=== PATIENT | male | born 1955 | race Two or more races ===

== ENCOUNTER 2018-10-23 20:09 | Inpatient (IN) | payer MEDICARE, OTHER ==
[~2018-10-23] VITALS: Ht 182.9 cm; Wt 81.6 kg
[2018-10-23] MEDS ORDERED: OLANZAPINE 10 MG VIAL IM ONE ×2 (20:39→21:00)
[2018-10-23 20:43] LABS: APPEARANCE,URINE Clear (CLEAR); BILIRUBIN,URINE Negative (NEGATIVE); BLOOD, URINE Negative Ery/uL (NEGATIVE); COLOR,URINE Yellow (YELLOW); KETONES,URINE Negative (NEGATIVE); LEUKOCYTE ESTERASE ,URINE Negative (NEGATIVE); NITRITE, URINE Positive (NEGATIVE); PROTEIN,URINE Negative (NEGATIVE); UGLUCOSE Negative (NEGATIVE); UROBILINOGEN,URINE 0.2 EU/dL (0.2)
[2018-10-23 20:50] LABS: BASOPHILS # (AUTO) 0.1 /CMM (0.0-0.2); BASOPHILS % (AUTO) 0.8 % (0.0-2.0); EOSINOPHILS % (AUTO) 1.8 % (0.0-6.0); HEMATOCRIT 43 % (39-51); HEMOGLOBIN 14.7 g/dL (13.5-17.5); LYMPHOCYTES % (AUTO) 30.5 % (20.0-44.0); MEAN CORPUSCULAR HGB CONC 34 g/dl (31.0-36.0); MEAN CORPUSCULAR VOLUME 97 fL (80-96); MONOCYTES # (AUTO) 0.7 /CMM (0.1-1.30); MONOCYTES % (AUTO) 7.1 % (2.0-12.0); NEUTROPHILS # (AUTO) 5.9 /CMM (1.8-8.9); NEUTROPHILS % (AUTO) 59.8 % (43.0-81.0); PLATELET COUNT (AUTO) 218 /CMM (150-450); RED BLOOD CELL COUNT(AUTO) 4.42 MIL/uL (4.5-6.0); WHITE BLOOD COUNT (AUTO) 9.9 K/uL (4.3-11.0)
[2018-10-23 20:58] LABS: CALCIUM, SERUM 8.7 mg/dL (8.5-10.1); CARBON DIOXIDE 25 mmol/L (21-32); CHLORIDE 105 mmol/L (98-107); CREATININE 0.7 mg/dL (0.6-1.3); GLUCOSE 85 mg/dL (74-106); POTASSIUM 3.9 mmol/L (3.5-5.1); SODIUM SERUM 143 mmol/L (136-145); UREA NITROGEN, BLOOD 9 mg/dL (7-18)
[2018-10-23 21:01] LABS: SQUAMOUS EPITHELIAL CELL,UR Rare /HPF (None Seen)
[2018-10-23 21:02] LABS: BACTERIA,URINE Many /HPF (None Seen); RBC,URINE 0-2 /HPF (0-2); WBC,URINE 0-2 /HPF (0-3)
[2018-10-23 21:04] LABS: ALANINE AMINOTRANSFERASE 25 U/L (12-78); ALBUMIN 3.9 g/dL (3.4-5.0); ALCOHOL, BLOOD 209 mg/dL (0-0); ALKALINE PHOSPHATASE 70 U/L (46-116); ASPARTATE AMINOTRANSFERASE 25 U/L (15-37); BILIRUBIN,DIRECT 0.1 mg/dL (0.0-0.2); BILIRUBIN,TOTAL 0.3 mg/dL (0.2-1.0); SALICYLATE 3.6 mg/dL (2.8-20.0); TOTAL PROTEIN, SERUM 7.9 g/dL (6.4-8.2)
[2018-10-23 21:05] LABS: ACETAMINOPHEN < 2 ug/ml (10-30)
[2018-10-23] MEDS ORDERED: MAG HYDROX/AL HYDROX/SIMETH 30 ML UDC PO PRN (23:00)
[2018-10-23] MEDS ORDERED: ATOR40TA PO (23:37)
[2018-10-23] MEDS ORDERED: PHEN100C4 PO (23:37)
[2018-10-23] MEDS ORDERED: LISI10TA5 PO (23:37)
[2018-10-23] MEDS ORDERED: CLOP75TA15 PO (23:37)
[2018-10-23] MEDS ORDERED: METH750T3 PO (23:37)
[2018-10-23] MEDS ORDERED: TRAZ-182 PO (23:37)
[2018-10-23] MEDS ORDERED: QUET100T PO (23:37)
[2018-10-23] MEDS ORDERED: GABA-534 PO (23:37)
[2018-10-23] MEDS ORDERED: FLUT1DIS5 INH (23:37)
[2018-10-23] MEDS ORDERED: OMEP40CA37 PO (23:37)
[2018-10-23] MEDS ORDERED: DIPH50CA4 PO (23:48)
[2018-10-23] MEDS ORDERED: TRAM50TA2 PO (23:48)
[2018-10-23] MEDS ORDERED: HYDR-4384 PO (23:48)
[2018-10-23] MEDS ORDERED: TIOT18CA3 IH (23:48)
[2018-10-23] MEDS ORDERED: CLON0.1T PO (23:48)
[2018-10-23] MEDS ORDERED: ALBU18HF2 INH (23:48)
[2018-10-23 23:51] VITALS: BP 134/65
[2018-10-24 08:00] VITALS: BP 119/63
[2018-10-24 08:24] LABS: CREATININE 0.9 mg/dL (0.6-1.3)
[2018-10-24] MEDS: ACETAMINOPHEN 325 MG TABLET PO PRN (09:12)
[2018-10-24] MEDS: NICOTINE PATCH (21MG) 21 MG PATCH.TD24 TD SCH (09:13)
[2018-10-24] MEDS ORDERED: METHOCARBAMOL (750MG) 750 MG TABLET PO PRN (11:00)
[2018-10-24] MEDS ORDERED: diphenhydrAMINE HCL 50 MG CAPSULE PO PRN (11:00)
[2018-10-24] MEDS ORDERED: CLONIDINE HCL 0.1 MG TABLET PO PRN (11:00)
[2018-10-24] MEDS: GABAPENTIN 300 MG CAPSULE PO SCH ×2 (12:46→16:39)
[2018-10-24] MEDS: HYDROCODONE/APAP 5/325MG 1 EACH TABLET PO PRN (12:48)
[2018-10-24] MEDS: IPRATROPIUM NEB FS 0.5 MG/2.5 ML AMPUL.NEB NEB SCH ×2 (13:15→20:41)
[2018-10-24] MEDS: ALBUTEROL FS 2.5 MG/3 ML VIAL.NEB NEB PRN ×2 (13:15→20:41)
[2018-10-24 16:04] VITALS: BP 148/73
[2018-10-24] MEDS: TRAMADOL HCL 50 MG TABLET PO PRN (18:10)
[2018-10-24 19:56] VITALS: BP 155/84
[2018-10-24] MEDS: TRAZODONE 50 MG TABLET PO SCH (21:22)
[2018-10-24] MEDS: PHENYTOIN EXTENDED RELEASE 100 MG CAPSULE PO SCH (21:22)
[2018-10-24] MEDS: QUETIAPINE FUMARATE 100 MG TABLET PO SCH (21:26)
[2018-10-24] MEDS ORDERED: TRAZODONE 50 MG TABLET PO SCH (22:00)
[2018-10-24] MEDS: TEMAZEPAM 7.5 MG CAPSULE PO PRN (22:17)
[2018-10-25] MEDS: IPRATROPIUM NEB FS 0.5 MG/2.5 ML AMPUL.NEB NEB SCH ×4 (00:58→19:54)
[2018-10-25] MEDS: ALBUTEROL FS 2.5 MG/3 ML VIAL.NEB NEB PRN ×2 (00:58→13:26)
[2018-10-25 08:00] VITALS: BP 134/71
[2018-10-25] MEDS: HYDROCODONE/APAP 5/325MG 1 EACH TABLET PO PRN ×2 (09:03→15:20)
[2018-10-25] MEDS: CLOPIDOGREL BISULFATE 75 MG TABLET PO SCH (09:03)
[2018-10-25] MEDS: ATORVASTATIN 40 MG TABLET PO SCH (09:03)
[2018-10-25] MEDS: QUETIAPINE FUMARATE 25 MG TABLET PO SCH (09:04)
[2018-10-25] MEDS: NICOTINE PATCH (21MG) 21 MG PATCH.TD24 TD SCH (09:04)
[2018-10-25] MEDS: FLUTICASONE/VILANTEROL 1 EACH BLST.W.DEV IH SCH (09:06)
[2018-10-25] MEDS: GABAPENTIN 300 MG CAPSULE PO SCH ×3 (09:08→16:30)
[2018-10-25] MEDS: LISINOPRIL (10MG) 10 MG TABLET PO SCH (09:09)
[2018-10-25] MEDS: PANTOPRAZOLE 40 MG TABLET.DR PO SCH (09:10)
[2018-10-25] MEDS: LORAZEPAM 0.5 MG TABLET PO PRN ×2 (10:01→16:30)
[2018-10-25] MEDS: diphenhydrAMINE HCL 25 MG CAPSULE PO PRN (15:22)
[2018-10-25 16:00] VITALS: BP 142/69
[2018-10-25 20:00] VITALS: BP 136/66
[2018-10-25] MEDS: PHENYTOIN EXTENDED RELEASE 100 MG CAPSULE PO SCH (21:03)
[2018-10-25] MEDS: MUPIROCIN OINT 2% 22 GM TUBE SCH (21:03)
[2018-10-25] MEDS: QUETIAPINE FUMARATE 100 MG TABLET PO SCH (21:03)
[2018-10-25] MEDS: TRAZODONE 50 MG TABLET PO SCH (21:10)
[2018-10-25] MEDS: TEMAZEPAM 7.5 MG CAPSULE PO PRN (22:06)
[2018-10-26] MEDS: IPRATROPIUM NEB FS 0.5 MG/2.5 ML AMPUL.NEB NEB SCH ×4 (01:09→21:10)
[2018-10-26 08:00] VITALS: BP 134/82
[2018-10-26] MEDS: HYDROCODONE/APAP 5/325MG 1 EACH TABLET PO PRN ×3 (08:35→22:08)
[2018-10-26] MEDS: NICOTINE PATCH (21MG) 21 MG PATCH.TD24 TD SCH (08:35)
[2018-10-26] MEDS: QUETIAPINE FUMARATE 25 MG TABLET PO SCH (08:36)
[2018-10-26] MEDS: CLOPIDOGREL BISULFATE 75 MG TABLET PO SCH (08:36)
[2018-10-26] MEDS: PANTOPRAZOLE 40 MG TABLET.DR PO SCH (08:36)
[2018-10-26] MEDS: GABAPENTIN 300 MG CAPSULE PO SCH ×3 (08:36→16:11)
[2018-10-26] MEDS: ATORVASTATIN 40 MG TABLET PO SCH (08:36)
[2018-10-26] MEDS: FLUTICASONE/VILANTEROL 1 EACH BLST.W.DEV IH SCH (08:37)
[2018-10-26] MEDS: LISINOPRIL (10MG) 10 MG TABLET PO SCH (08:37)
[2018-10-26] MEDS: MUPIROCIN OINT 2% 22 GM TUBE SCH ×2 (08:38→22:10)
[2018-10-26] MEDS: MAGNESIUM HYDROXIDE 30 ML UDC PO PRN (08:53)
[2018-10-26] MEDS: LORAZEPAM 0.5 MG TABLET PO PRN ×2 (09:51→19:49)
[2018-10-26] MEDS: diphenhydrAMINE HCL 25 MG CAPSULE PO PRN (11:12)
[2018-10-26] MEDS: TRAMADOL HCL 50 MG TABLET PO PRN (14:00)
[2018-10-26 16:00] VITALS: BP 159/72
[2018-10-26] MEDS: ACETAMINOPHEN 325 MG TABLET PO PRN (19:56)
[2018-10-26 20:00] VITALS: BP 140/97
[2018-10-26] MEDS: ALBUTEROL FS 2.5 MG/3 ML VIAL.NEB NEB PRN (21:12)
[2018-10-26] MEDS: TEMAZEPAM 7.5 MG CAPSULE PO PRN (22:08)
[2018-10-26] MEDS: QUETIAPINE FUMARATE 100 MG TABLET PO SCH (22:08)
[2018-10-26] MEDS: PHENYTOIN EXTENDED RELEASE 100 MG CAPSULE PO SCH (22:08)
[2018-10-26] MEDS: TRAZODONE 50 MG TABLET PO SCH (22:08)
[2018-10-27] MEDS: diphenhydrAMINE HCL 25 MG CAPSULE PO PRN ×2 (00:28→08:49)
[2018-10-27] MEDS: IPRATROPIUM NEB FS 0.5 MG/2.5 ML AMPUL.NEB NEB SCH ×4 (01:30→20:30)
[2018-10-27 08:00] VITALS: BP 120/69
[2018-10-27] MEDS: ALBUTEROL FS 2.5 MG/3 ML VIAL.NEB NEB PRN ×3 (08:17→13:38)
[2018-10-27] MEDS: QUETIAPINE FUMARATE 25 MG TABLET PO SCH (08:38)
[2018-10-27] MEDS: NICOTINE PATCH (21MG) 21 MG PATCH.TD24 TD SCH (08:38)
[2018-10-27] MEDS: HYDROCODONE/APAP 5/325MG 1 EACH TABLET PO PRN ×3 (08:38→22:37)
[2018-10-27] MEDS: GABAPENTIN 300 MG CAPSULE PO SCH ×3 (08:39→16:58)
[2018-10-27] MEDS: ATORVASTATIN 40 MG TABLET PO SCH (08:39)
[2018-10-27] MEDS: PANTOPRAZOLE 40 MG TABLET.DR PO SCH (08:39)
[2018-10-27] MEDS: FLUTICASONE/VILANTEROL 1 EACH BLST.W.DEV IH SCH (08:39)
[2018-10-27] MEDS: MUPIROCIN OINT 2% 22 GM TUBE SCH ×2 (08:39→21:25)
[2018-10-27] MEDS: LISINOPRIL (10MG) 10 MG TABLET PO SCH (08:39)
[2018-10-27] MEDS: CLOPIDOGREL BISULFATE 75 MG TABLET PO SCH (08:49)
[2018-10-27] MEDS: ACETAMINOPHEN 325 MG TABLET PO PRN ×2 (11:42→18:59)
[2018-10-27] MEDS: LORAZEPAM 0.5 MG TABLET PO PRN ×2 (11:42→21:25)
[2018-10-27 16:00] VITALS: BP 122/62
[2018-10-27 20:00] VITALS: BP 139/68
[2018-10-27] MEDS: PHENYTOIN EXTENDED RELEASE 100 MG CAPSULE PO SCH (22:37)
[2018-10-27] MEDS: TRAZODONE 50 MG TABLET PO SCH (22:37)
[2018-10-27] MEDS: QUETIAPINE FUMARATE 100 MG TABLET PO SCH (22:37)
[2018-10-28] MEDS: IPRATROPIUM NEB FS 0.5 MG/2.5 ML AMPUL.NEB NEB SCH ×4 (01:10→20:17)
[2018-10-28 08:22] VITALS: BP 123/68
[2018-10-28] MEDS: ALBUTEROL FS 2.5 MG/3 ML VIAL.NEB NEB PRN ×3 (08:28→08:37)
[2018-10-28] MEDS: CLOPIDOGREL BISULFATE 75 MG TABLET PO SCH (08:43)
[2018-10-28] MEDS: PANTOPRAZOLE 40 MG TABLET.DR PO SCH (08:43)
[2018-10-28] MEDS: GABAPENTIN 300 MG CAPSULE PO SCH ×3 (08:43→16:26)
[2018-10-28] MEDS: QUETIAPINE FUMARATE 25 MG TABLET PO SCH (08:43)
[2018-10-28] MEDS: NICOTINE PATCH (21MG) 21 MG PATCH.TD24 TD SCH (08:43)
[2018-10-28] MEDS: LISINOPRIL (10MG) 10 MG TABLET PO SCH (08:43)
[2018-10-28] MEDS: ATORVASTATIN 40 MG TABLET PO SCH (08:43)
[2018-10-28] MEDS: FLUTICASONE/VILANTEROL 1 EACH BLST.W.DEV IH SCH (08:44)
[2018-10-28] MEDS: MUPIROCIN OINT 2% 22 GM TUBE SCH ×2 (08:45→21:31)
[2018-10-28] MEDS: TRAMADOL HCL 50 MG TABLET PO PRN (08:54)
[2018-10-28] MEDS: HYDROCODONE/APAP 5/325MG 1 EACH TABLET PO PRN ×2 (11:23→18:27)
[2018-10-28] MEDS: LORAZEPAM 0.5 MG TABLET PO PRN ×2 (12:31→21:30)
[2018-10-28] MEDS: ACETAMINOPHEN 325 MG TABLET PO PRN (15:05)
[2018-10-28 16:00] VITALS: BP 138/71
[2018-10-28 20:00] VITALS: BP 133/83
[2018-10-28] MEDS: TRAZODONE 50 MG TABLET PO SCH (21:30)
[2018-10-28] MEDS: PHENYTOIN EXTENDED RELEASE 100 MG CAPSULE PO SCH (21:30)
[2018-10-28] MEDS: MAGNESIUM HYDROXIDE 30 ML UDC PO PRN (21:37)
[2018-10-28] MEDS ORDERED: QUETIAPINE FUMARATE 100 MG TABLET PO SCH (22:00)
[2018-10-29] MEDS: IPRATROPIUM NEB FS 0.5 MG/2.5 ML AMPUL.NEB NEB SCH ×4 (01:30→19:48)
[2018-10-29] MEDS: ALBUTEROL FS 2.5 MG/3 ML VIAL.NEB NEB PRN ×2 (07:58→13:26)
[2018-10-29 08:00] VITALS: BP 112/65
[2018-10-29] MEDS: MUPIROCIN OINT 2% 22 GM TUBE SCH ×2 (08:08→21:20)
[2018-10-29] MEDS: FLUTICASONE/VILANTEROL 1 EACH BLST.W.DEV IH SCH (08:08)
[2018-10-29] MEDS: GABAPENTIN 300 MG CAPSULE PO SCH ×3 (08:09→16:22)
[2018-10-29] MEDS: NICOTINE PATCH (21MG) 21 MG PATCH.TD24 TD SCH (08:09)
[2018-10-29] MEDS: CLOPIDOGREL BISULFATE 75 MG TABLET PO SCH (08:09)
[2018-10-29] MEDS: ATORVASTATIN 40 MG TABLET PO SCH (08:09)
[2018-10-29] MEDS: PANTOPRAZOLE 40 MG TABLET.DR PO SCH (08:09)
[2018-10-29] MEDS: LISINOPRIL (10MG) 10 MG TABLET PO SCH (08:09)
[2018-10-29] MEDS: QUETIAPINE FUMARATE 25 MG TABLET PO SCH (08:09)
[2018-10-29] MEDS: HYDROCODONE/APAP 5/325MG 1 EACH TABLET PO PRN ×3 (09:20→22:17)
[2018-10-29] MEDS: LORAZEPAM 0.5 MG TABLET PO PRN ×2 (10:39→18:10)
[2018-10-29] MEDS: TRAMADOL HCL 50 MG TABLET PO PRN (13:46)
[2018-10-29 16:00] VITALS: BP 126/69
[2018-10-29 20:08] VITALS: BP 142/65
[2018-10-29] MEDS: PHENYTOIN EXTENDED RELEASE 100 MG CAPSULE PO SCH (21:19)
[2018-10-29] MEDS: QUETIAPINE FUMARATE 100 MG TABLET PO SCH (21:19)
[2018-10-29] MEDS: TRAZODONE 50 MG TABLET PO SCH (21:19)
[2018-10-29] MEDS: TEMAZEPAM 7.5 MG CAPSULE PO PRN (22:17)
[2018-10-30] MEDS: IPRATROPIUM NEB FS 0.5 MG/2.5 ML AMPUL.NEB NEB SCH ×4 (01:30→20:39)
[2018-10-30 08:00] VITALS: BP 120/78
[2018-10-30] MEDS: CLOPIDOGREL BISULFATE 75 MG TABLET PO SCH (08:43)
[2018-10-30] MEDS: ATORVASTATIN 40 MG TABLET PO SCH (08:43)
[2018-10-30] MEDS: PANTOPRAZOLE 40 MG TABLET.DR PO SCH (08:43)
[2018-10-30] MEDS: LORAZEPAM 0.5 MG TABLET PO PRN ×2 (08:43→19:36)
[2018-10-30] MEDS: NICOTINE PATCH (21MG) 21 MG PATCH.TD24 TD SCH (08:44)
[2018-10-30] MEDS: QUETIAPINE FUMARATE 25 MG TABLET PO SCH (08:44)
[2018-10-30] MEDS: HYDROCODONE/APAP 5/325MG 1 EACH TABLET PO PRN ×3 (08:44→22:09)
[2018-10-30] MEDS: diphenhydrAMINE HCL 25 MG CAPSULE PO PRN (08:44)
[2018-10-30] MEDS: LISINOPRIL (10MG) 10 MG TABLET PO SCH (08:45)
[2018-10-30] MEDS: MUPIROCIN OINT 2% 22 GM TUBE SCH ×2 (08:52→21:16)
[2018-10-30] MEDS: FLUTICASONE/VILANTEROL 1 EACH BLST.W.DEV IH SCH (08:53)
[2018-10-30] MEDS: GABAPENTIN 300 MG CAPSULE PO SCH ×3 (09:00→16:53)
[2018-10-30] MEDS: TRAMADOL HCL 50 MG TABLET PO PRN (10:52)
[2018-10-30] MEDS: ALBUTEROL FS 2.5 MG/3 ML VIAL.NEB NEB PRN (13:54)
[2018-10-30 16:00] VITALS: BP 119/69
[2018-10-30 20:20] VITALS: BP 139/73
[2018-10-30] MEDS: TRAZODONE 50 MG TABLET PO SCH (21:16)
[2018-10-30] MEDS: PHENYTOIN EXTENDED RELEASE 100 MG CAPSULE PO SCH (21:17)
[2018-10-30] MEDS: QUETIAPINE FUMARATE 100 MG TABLET PO SCH (21:17)
[2018-10-31] MEDS: IPRATROPIUM NEB FS 0.5 MG/2.5 ML AMPUL.NEB NEB SCH ×2 (01:30→08:29)
[2018-10-31 08:00] VITALS: BP 140/82
[2018-10-31 08:13] VITALS: BP 140/82
[2018-10-31] MEDS: PANTOPRAZOLE 40 MG TABLET.DR PO SCH (08:13)
[2018-10-31] MEDS: CLOPIDOGREL BISULFATE 75 MG TABLET PO SCH (08:13)
[2018-10-31] MEDS: LISINOPRIL (10MG) 10 MG TABLET PO SCH (08:13)
[2018-10-31] MEDS: GABAPENTIN 300 MG CAPSULE PO SCH (08:13)
[2018-10-31] MEDS: QUETIAPINE FUMARATE 25 MG TABLET PO SCH (08:13)
[2018-10-31] MEDS: NICOTINE PATCH (21MG) 21 MG PATCH.TD24 TD SCH (08:13)
[2018-10-31] MEDS: ATORVASTATIN 40 MG TABLET PO SCH (08:13)
[2018-10-31] MEDS: MUPIROCIN OINT 2% 22 GM TUBE SCH (08:16)
[2018-10-31] MEDS: ALBUTEROL FS 2.5 MG/3 ML VIAL.NEB NEB PRN (08:29)
[2018-10-31] MEDS: HYDROCODONE/APAP 5/325MG 1 EACH TABLET PO PRN (09:18)
[2018-10-31] MEDS: FLUTICASONE/VILANTEROL 1 EACH BLST.W.DEV IH SCH (11:13)
[2018-10-31] MEDS: TRAMADOL HCL 50 MG TABLET PO PRN (11:26)
== END 2018-10-31 12:55 | DRG 885 ==
LOC: ER 20:11 → GPS 21:46
PROVIDERS: ADMIT Psychiatry & Neurology Psychiatry; ATTEND Psychiatry & Neurology Psychiatry
DX: F31.60 Bipolar disorder, current episode mixed, unspecified (principal); F23 Brief psychotic disorder; G40.909 Epilepsy, unspecified, not intractable, without status epilepticus; M19.90 Unspecified osteoarthritis, unspecified site; G62.9 Polyneuropathy, unspecified; F41.9 Anxiety disorder, unspecified; F17.210 Nicotine dependence, cigarettes, uncomplicated; F10.129 Alcohol abuse with intoxication, unspecified; Y90.7 Blood alcohol level of 200-239 mg/100 ml; G89.4 Chronic pain syndrome; J44.9 Chronic obstructive pulmonary disease, unspecified; I10 Essential (primary) hypertension
CPT/HCPCS: 36415; 71045-TC; 80048-TC; 80061-TC; 80076-TC; 80305; 81000-TC; 82565-TC; 85025-TC; 87081-TC; 87086-TC; G0480; J3490; Q0163